=== PATIENT | male | born 1950 ===

== ENCOUNTER 2022-11-04 13:02 | Outpatient (CLI) | payer MEDICARE | END 2022-11-04 13:03 | disposition home or self-care (01) | LOC: CSHMRI 13:02 | PROVIDERS: ATTEND Family Medicine | DX: M54.32 Sciatica, left side (principal); M47.816 Spondylosis without myelopathy or radiculopathy, lumbar region; M48.061 Spinal stenosis, lumbar region without neurogenic claudication | CPT/HCPCS: 72148 ==